=== PATIENT | male | born 1980 | race Two or more races ===

== ENCOUNTER 2020-04-26 10:43 | Emergency (ER) | payer SELFPAY ==
[~2020-04-26] VITALS: Ht 175.3 cm; Wt 90.7 kg
[2020-04-26] MEDS ORDERED: Tetanus/Diptheria/Pertussis IM ONE (11:30)
[2020-04-26 12:05] VITALS: BP 148/79
--- NOTE | 2020-04-26 12:08 | NUR ---
ED Nurse Note: Pt cleared by health care Provider for discharge. DC instructions was given and explained to pt and verbalized understanding of teachings. All medical deviecs such as ID band removed. Pt is AAO x4, ambulatory and left with all personal belongings.
[2020-04-26 12:09] VITALS: BP 148/79
--- NOTE | 2020-05-02 06:54 | Emergency Room Report ---
History of Present Illness General Chief Complaint: Laceration Source: Patient Present Illness HPI 39-year-old male presents for evaluation. States that he cut his forehead today when he leaned forward to the trunk of his car and was cut by the metal. Denies any significant impact. Denies LOC. States he has bleeding. Denies pain. Denies any other injuries. Tetanus unknown. No other aggravating relieving factors. 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 Eyes: bilateral eye normal inspection, bilateral eye PERRL ENT: hearing grossly normal, normal pharynx, no angioedema, normal voice Neck: full range of motion, supple/symm/no masses Respiratory: chest non-tender, lungs clear, normal breath sounds, speaking full sentences Cardiovascular #1: regular rate, rhythm, no edema Cardiovascular #2: 2+ carotid (R), 2+ carotid (L), 2+ radial (R), 2+ radial (L), 2+ dorsalis pedis (R), 2+ dorsalis pedis (L) Gastrointestinal: normal bowel sounds, non tender, soft, non-distended, no guarding, no rebound Rectal: deferred Genitourinary: normal inspection, no CVA tenderness Musculoskeletal: back normal, normal range of motion, gait/station normal, non- tender Neurologic: alert, motor strength/tone normal, oriented x3, sensory intact, responsive, speech normal Psychiatric: judgement/insight normal, memory normal, mood/affect normal, no suicidal/homicidal ideation Reflexes: 3+ bicep (R), 3+ bicep (L), 3+ tricep (R), 3+ tricep (L), 3+ knee (R), 3+ knee (L) Skin: laceration - 2 cm vertical laceration to forehead Lymphatic: no adenopathy Procedures Laceration/Wound Repair Laceration/Wound Repair : Consent: Verbal Wound Location: head Wound's Depth, Shape: linear Wound Explored: clean Betadine Prep?: Yes Wound Debrided: minimal Wound Repaired With: Dermabond Layer Closure?: No Sterile Dressing Applied?: No Splint Applied?: No Sling Applied?: No Patient Tolerated: Well Complications: None Medical Decision Making Diagnostic Impression: Primary Impression: Laceration ER Course Hospital Course 39-year-old male presents with laceration to forehead Clinical course Patient placed on stretcher. After initial history and physical I ordered tetanus shot. Wound irrigated. Repaired with Dermabond. Tolerated without complication discussed with patient. Safe for discharge with close outpatient follow-up. I'll provide referrals Diagnosis - laceration Stable and discharged to home. wound Care instructions given. Followup with PMD. Return to ED if any signs of infection develop Status: improved Disposition: HOME, SELF-CARE Condition: Stable Referrals: NOT CHOSEN IPA/,REFERRING (PCP) Edie [facility] Patient Instructions: Nonsutured Laceration Care Reilly Nix MD May 02, 2020 06:54
== END 2020-04-26 12:05 | disposition home or self-care (01) ==
LOC: EMR 11:30
DX: S01.81XA Laceration without foreign body of other part of head, initial encounter (principal); W26.9XXA Contact with unspecified sharp object(s), initial encounter; Y92.9 Unspecified place or not applicable; Z23 Encounter for immunization
CPT/HCPCS: 90471; 90715; 99282